=== PATIENT | male | born 1965 | race American Indian/Alaskan Native ===

== ENCOUNTER 2017-04-18 23:50 | Emergency (ER) | payer BC ==
--- NOTE | 2017-04-19 00:54 | XRay Report ---
FINAL REPORT EXAM: XR CHEST ROUTINE 2V HISTORY: cough TECHNIQUE: PA and lateral views of the chest were submitted. There are no previous studies available for comparison. FINDINGS: Heart size and mediastinum appear normal. The thoracic aorta is mildly tortuous. The lungs are clear. Pleural fluid is not seen. The skeletal structures reveal multilevel mild disc degeneration in the thoracic spine. There is also non specific sclerosis in the right humeral head and neck. IMPRESSION: No acute process in the chest. Nonspecific sclerotic changes in the proximal right humerus. If previous studies are available they should be submitted for comparison.
[2017-04-19] MEDS ORDERED: DUONEB *Not for PRN Use IH ONE (05:34)
--- NOTE | 2017-04-19 05:41 | Emergency Department Report ---
- General Chief Complaint: Upper Respiratory Infection Stated Complaint: FLU LIKE SYMPTOMS Time Seen by Provider: 04/19/17 05:24 Source: patient Mode of arrival: Ambulatory Limitations: No Limitations - History of Present Illness Initial Comments: 51 yo male who comes in today due to cough, congestion, fever, and chills times three days. He admits to being treated for pneumonia approximately three years ago. He denies any other past medical history. Onset/Timin -: days(s) Severity: mild Consistency: intermittent Improves With: nothing Associated Symptoms: fever, chills, nasal congestion, sore throat, cough Treatments Prior to Arrival: other (over the counter meds) - Related Data Previous Rx's Medication Instructions Recorded Last Taken Type ALBUTEROL Inhaler [ProAir HFA 2 puff IH QID PRN #1 inhalation 04/19/17 Unknown Rx Inhaler] Ondansetron [Zofran Odt] 4 mg PO Q6HR PRN #20 tab.rapdis 04/19/17 Unknown Rx Allergies Allergy/AdvReac Type Severity Reaction Status Date / Time No Known Allergies Allergy Unverified 04/19/17 00:00 ED Review of Systems ROS: Stated complaint: FLU LIKE SYMPTOMS Other details as noted in HPI Constitutional: see HPI, chills, fever Eyes: denies: eye pain, eye discharge, vision change ENT: throat pain, congestion Respiratory: cough Cardiovascular: denies: chest pain, palpitations Endocrine: no symptoms reported Gastrointestinal: denies: abdominal pain, nausea, diarrhea Genitourinary: denies: urgency, dysuria Musculoskeletal: denies: back pain, joint swelling, arthralgia Skin: denies: rash, lesions Neurological: denies: headache, weakness, paresthesias Psychiatric: denies: anxiety, depression Hematological/Lymphatic: denies: easy bleeding, easy bruising ED Past Medical Hx - Past Medical History Previous Medical History?: No - Surgical History Past Surgical History?: No - Social History Smoking Status: Never Smoker Substance Use Type: None - Medications Home Medications: Home Medications Medication Instructions Recorded Confirmed Last Taken Type ALBUTEROL Inhaler [ProAir HFA 2 puff IH QID PRN #1 inhalation 04/19/17 Unknown Rx Inhaler] Ondansetron [Zofran Odt] 4 mg PO Q6HR PRN #20 tab.rapdis 04/19/17 Unknown Rx ED Physical Exam - General Limitations: No Limitations General appearance: alert, in no apparent distress - Head Head exam: Present: atraumatic, normocephalic - Eye Eye exam: Present: normal appearance - ENT ENT exam: Present: other (postnasal drainage ) - Neck Neck exam: Present: normal inspection - Respiratory Respiratory exam: Present: wheezes (diffusely-expiratory ) - Cardiovascular Cardiovascular Exam: Present: regular rate, normal rhythm. Absent: systolic murmur, diastolic murmur, rubs, gallop - Back Exam Back exam: Present: normal inspection - Neurological Exam Neurological exam: Present: alert, oriented X3 - Psychiatric Psychiatric exam: Present: normal affect, normal mood - Skin Skin exam: Present: warm, dry, intact, normal color. Absent: rash ED Course Vital Signs 04/18/17 23:58 Temperature 97.6 F Pulse Rate 72 Respiratory 17 Rate Blood Pressure 129/84 O2 Sat by Pulse 99 Oximetry - Reevaluation(s) Reevaluation #1: 04/19/17 06:25 Lung sounds improved with duoneb treatment. Patient also admits to diarrhea. Suspect viral uri and gastroenteritis. Critical care attestation.: If time is entered above; I have spent that time in minutes in the direct care of this critically ill patient, excluding procedure time. ED Disposition Clinical Impression: Gastroenteritis, Bronchitis Disposition: - TO HOME OR SELFCARE Is pt being admited?: No Does the pt Need Aspirin: No Condition: Stable Instructions: Chronic Bronchitis (ED), Acute Bronchitis (ED), Gastroenteritis ( ED), Viral Syndrome (ED) Additional Instructions: Use medicine as prescribed. Remember to not use Pepto-Bismol as it prolongs the infectious process with gastroenteritis. May take tylenol 650 mg by mouth every 6-8 hours as needed for temperature greater than 100.4. Don't return to work until better. Also remember to drink Gatorade and/or Powerade until diarrhea resolves to avoid dehydration. Prescriptions: ALBUTEROL Inhaler [ProAir HFA Inhaler] 2 puff IH QID PRN #1 inhalation PRN Reason: Cough Ondansetron [Zofran Odt] 4 mg PO Q6HR PRN #20 tab.rapdis PRN Reason: Nausea And Vomiting Referrals: PRIMARY CARE,MD [Primary Care Provider] - 3-5 Days Time of Disposition: 06:27
[2017-04-19 06:47] VITALS: BP 128/76
== END 2017-04-19 06:45 | disposition home or self-care (01) ==
LOC: ED 23:50
DX: R09.81 Nasal congestion (principal); J40 Bronchitis, not specified as acute or chronic; K52.9 Noninfective gastroenteritis and colitis, unspecified
CPT/HCPCS: 71020; 87400